=== PATIENT | female | born 1940 | race Caucasian/White ===

== ENCOUNTER 2022-02-17 13:59 | Day surgery (SDC) | payer MEDICARE ==
[2022-02-17] MEDS ORDERED: Depo-Medrol 40 MG/ML IM ONE (14:00)
[2022-02-17] MEDS ORDERED: XYLOCAINE 1% HCL 20 ML MDV IJ ONE (14:00)
[2022-02-17] MEDS ORDERED: BUPIVACAINE 0.5% VIAL IJ ONE (14:00)
--- NOTE | 2022-02-17 19:04 | XRAY ---
Indication: Left SI joint injection. Intraoperative fluoroscopy provided for 17 seconds. Single lateral digital spot image submitted for interpretation demonstrates posterior needle tip projecting over the presumed left SI joint. Correlate with intraoperative findings/report.
--- NOTE | 2022-02-18 08:46 | XRAY ---
17 seconds of fluoroscopy was used in surgery for a left SI joint injection.
== END 2022-02-17 16:18 | disposition home or self-care (01) ==
LOC: SDC-PAIN 13:59
PROVIDERS: ATTEND Psychiatry & Neurology Pain Medicine
DX: M46.1 Sacroiliitis, not elsewhere classified (principal); I10 Essential (primary) hypertension; Z79.899 Other long term (current) drug therapy
CPT/HCPCS: 27096; 72020; 77002; G0260; J1030